=== PATIENT | male | born 1970 | race Caucasian/White ===

== ENCOUNTER 2016-10-06 21:38 | Emergency (ER) | payer BC ==
[~2016-10-06] VITALS: Ht 188 cm; Wt 112.4 kg
[~2016-10-06 21:38] MED LIST: ASPIR-LOW81 MG PO; ASPIRIN325 MG PO; ASPIRIN81 M2 PO; ATORVASTATIN CA80 MG PO; CHLORTHALIDONE25 MG PO; CLOPIDOGREL75 MG PO; HUMALOG100 UNIT/2 SC; IMDUR60 MG PO; ISOSORBIDE DINI30 MG PO; JANUVIA100 MG PO; K-DUR20 MEQ PO; KEFLEX500 MG PO; LEVEMIR100 UNIT/2 SC; LISINOPRIL20 MG PO; LOPRESSOR25 MG PO; METOPROLOL TART25 MG PO; NITROGLYCERIN0.4 MG SL; NITROSTAT0.4 MG SL; PLAVIX75 MG PO; TOUJEO SOL300 UNIT/1 SC; TRAMADOL HCL50 MG PO; VASCEPA1 GM PO
[2016-10-06] MEDS ORDERED: FLONASE16 G1 BOTH NARES (23:03)
[2016-10-07 01:50] VITALS: BP 145/89
== END 2016-10-07 02:09 | disposition home or self-care (01) ==
LOC: EME 21:38
DX: G62.9 Polyneuropathy, unspecified (principal); M79.604 Pain in right leg; I25.2 Old myocardial infarction; Z86.718 Personal history of other venous thrombosis and embolism; E11.9 Type 2 diabetes mellitus without complications; I10 Essential (primary) hypertension
CPT/HCPCS: 87651 90; 93971; 99281; 99283

== ENCOUNTER 2017-06-23 20:23 | Emergency (ER) | payer BC ==
[~2017-06-23] VITALS: Ht 188 cm; Wt 105.9 kg
[~2017-06-23 20:23] MED LIST changes: +FLONASE16 G1 BOTH NARES
[2017-06-23 21:58] LABS: BASOPHIL (%) 0.7 % (0-1); EOSINOPHIL (%) 0.4 % (0-5); HEMOGLOBIN 17.3 G/DL (12.5-16.6); IMMATURE GRANULOCYTE (%) 0.2 % (0.0-0.7); LYMPHOCYTE (%) 24.5 % (15-42); LYMPHOCYTE COUNT 1.4 K/uL (1.0-2.8); MCH 29.7 PG (29.0-34.0); MCHC 35.3 G/DL (30.0-36.0); MONOCYTE COUNT 0.6 K/uL (0-0.8); NEUTROPHIL (%) 64.2 % (45-76); NEUTROPHIL COUNT 3.6 K/uL (1.8-6.4); PLATELET COUNT 224 K/uL (156-360); RBC DIS.WIDTH-CV 12.3 % (11.8-14.6); RBC DIS.WIDTH-SD 37.2 % (39-53); RED BLOOD COUNT 5.83 M/uL (4.00-5.50); WHITE BLOOD COUNT 5.6 K/uL (4.1-10.2)
[2017-06-23 21:59] LABS: APPEARANCE SL.HAZY ((CLEAR)); BILIRUBIN SMALL; BLOOD NEGATIVE; COLOR AMBER ((YELLOW)); GLUCOSE (STRIP) 150; KETONES 5; LEUKOCYTES NEGATIVE; NITRITE NEGATIVE; PROTEIN (STRIP) 100; SPECIFIC GRAVITY 1.042 (1.000-1.030); UROBILINOGEN 0.2 MG/DL (0.2-1.0)
[2017-06-23 22:20] LABS: EPITHELIAL CELLS NONE SEEN /HPF; MUCUS 3+ /LPF
[2017-06-23 22:21] LABS: BACTERIA 1+ /HPF; RED BLOOD CELLS NONE SEEN /HPF (0-5); UCUL ADDED? NO; WHITE BLOOD CELLS RARE /HPF (0-5)
[2017-06-23 22:25] LABS: CHLORIDE 99 MEQ/L (99-109); CREATININE 1.1 MG/DL (0.6-1.3); GFR ESTIMATE (CALCULATED) > 59 mL/min/ (58.99-99999); GLUCOSE 184 mg/dL (70-99); POTASSIUM 3.7 MEQ/L (3.7-5.4); SODIUM 135 MEQ/L (136-147); UREA NITROGEN (BUN) 13 mg/dL (9-23)
[2017-06-24] MEDS ORDERED: ROBITUSSIN AC,T10 ML PO (00:36)
[2017-06-24 00:50] VITALS: BP 144/91
== END 2017-06-24 00:50 | disposition home or self-care (01) ==
LOC: EME 20:23
DX: J10.1 Influenza due to other identified influenza virus with other respiratory manifestations (principal); R10.31 Right lower quadrant pain; I10 Essential (primary) hypertension; E78.5 Hyperlipidemia, unspecified; I25.2 Old myocardial infarction; E11.9 Type 2 diabetes mellitus without complications; Z79.4 Long term (current) use of insulin; Z95.5 Presence of coronary angioplasty implant and graft; Z79.02 Long term (current) use of antithrombotics/antiplatelets; Z79.82 Long term (current) use of aspirin
CPT/HCPCS: 71046; 80048; 81003; 83605; 85025; 87502; 99281; 99284